=== PATIENT | male | born 1975 | race Caucasian/White ===

== ENCOUNTER 2017-06-27 23:23 | Emergency (ER) | payer MEDICAID ==
[~2017-06-27] VITALS: Ht 165.1 cm; Wt 80.0 kg
[~2017-06-27 23:23] MED LIST: IBUP200C74 PO; METH4TAB3 PO; MUPI15CR TP; NAPR-1154 PO; NO HOME MEDS
[2017-06-27 23:31] VITALS: BP 143/96
== END 2017-06-28 01:05 | disposition left against medical advice (07) ==
LOC: ER 23:23
DX: F41.9 Anxiety disorder, unspecified (principal); Z53.21 Procedure and treatment not carried out due to patient leaving prior to being seen by health care provider